=== PATIENT | male | born 1985 | race African-American/Black ===

== ENCOUNTER 2016-09-08 03:30 | Emergency (ER) | payer SELFPAY ==
[~2016-09-08 03:30] MED LIST: ANTI2TAB PO; Z.0.NO CURRENT MEDS; ZOFR4TAB3 PO
[2016-09-08 03:38] VITALS: BP 156/90; PULSE 100; RESP 12; TEMP 98.7; O2SAT 96
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
[2016-09-08] MEDS ORDERED: TETANUS/DIPHTHERIA TOXOID ADULT 0.5 ML VIAL IM ONE (04:30)
--- NOTE | 2016-09-08 04:53 | PD ---
Physical Exam Date Seen by Provider: Sep 08, 2016 Time Seen by Provider: 04:51 Narrative Skin: Patient has a linear laceration to the left anterior forehead. This measures 6 cm. No foreign body. No deep structure injury. Bleeding controlled. Data Data Last Documented VS Vital Signs Date Time Temp Pulse Resp B/P Pulse Ox O2 Delivery O2 Flow Rate FiO2 09/08/16 03:42 93 16 98 Room Air 09/08/16 03:38 98.7 156/[address] Brain W/O Iv Contrast(Rout) (09/08/16 04:23) Tetanus/Diphtheria Tox Adult (Tetanus/Di (09/08/16 04:30) MDM Medical Record Reviewed: Yes Supervised Visit with TIM: Yes Differential Diagnosis MDM: High Differential diagnoses: Fracture, sprain, strain, dislocation, contusion, neurovascular injury Narrative Course Patient's laceration is closed with sutures Procedures Procedure Narrative LACERATION LOCATION: Left anterior forehead LENGTH: 6 cm NUMBER OF STITCHES/DOC: Single running REPAIR: The area of the laceration was prepped with Betadine and sterilely draped. The laceration was infiltrated with 1% lidocaine. The wound was copiously irrigated and explored without evidence of foreign body, tendon injury or neurovascular injury. The wound was closed using 6-0 proline. This was a simple single layer repair. A sterile dressing was applied. Ice pack applied. The patient was advised to keep the dressing clean and dry. Patient tolerated the procedure well. Patient Instructions: General Instructions Additional Instruction: Rest. Ice pack tonight. Tylenol or Advil for pain. Daily wound care with soap, water, Neosporin. Sutures out in 5 days. Sunscreen and mederma for 6 months. Return to the ER for any problems. Med/Other Pt SpecificInfo: Wound Care Shekhar Lang Sep 08, 2016 04:53
--- NOTE | 2016-09-08 05:54 | RADRPT ---
EXAM DATE/TIME: 09/08/2016 05:10 [place] COMPARISON: No previous studies available for comparison. INDICATIONS : Trauma, fall. RADIATION DOSE: 56.35 CTDIvol (mGy) MEDICAL HISTORY : None SURGICAL HISTORY : None. ENCOUNTER: Initial ACUITY: 1 day PAIN SCALE: 6/10 LOCATION: cranial TECHNIQUE: Multiple contiguous axial images were obtained of the head. Using automated exposure control and adj ustment of the mA and/or kV according to patient size, radiation dose was kept as low as reasonably a chievable to obtain optimal diagnostic quality images. DICOM format image data is available electro nically for review and comparison. FINDINGS: CEREBRUM: The ventricles are normal for age. No evidence of midline shift, mass lesion, hemorrhage or acute in farction. No extra-axial fluid collections are seen. POSTERIOR FOSSA: The cerebellum and brainstem are intact. The 4th ventricle is midline. The cerebellopontine angle i s unremarkable. EXTRACRANIAL: The visualized portion of the orbits is intact. SKULL: The calvaria is intact. No evidence of skull fracture. CONCLUSION: Normal examination except for some subcutaneous soft tissue swelling primarily in the left supraorbit al region. Simba Wang MD on September 08, 2016 at 5:52 Board Certified Radiologist. This report was verified electronically.
[2016-09-08 06:11] VITALS: BP 142/82
--- NOTE | 2016-09-08 09:59 | EKG ---
Date Performed: 09/08/2016 Time Performed: 03:44:57 PTAGE: 30 years EKG: Sinus rhythm NONSPECIFIC T-WAVE ABNORMALITY BORDERLINE ECG NO PREVIOUS TRACING DOCTOR: Dewey Miranda Interpretating Date/Time 09/08/2016 09:58:29
== END 2016-09-08 06:19 | disposition home or self-care (01) ==
LOC: NEPE 03:30
DX: S01.81XA Laceration without foreign body of other part of head, initial encounter (principal); S06.0X0A Concussion without loss of consciousness, initial encounter; S09.90XA Unspecified injury of head, initial encounter; R94.31 Abnormal electrocardiogram [ECG] [EKG]; W01.198A Fall on same level from slipping, tripping and stumbling with subsequent striking against other object, initial encounter; Y92.480 Sidewalk as the place of occurrence of the external cause; Z72.0 Tobacco use; Z23 Encounter for immunization; V49.9XXA Car occupant (driver) (passenger) injured in unspecified traffic accident, initial encounter; Y92.410 Unspecified street and highway as the place of occurrence of the external cause
CPT/HCPCS: 12014; 70450; 90471; 90714; 93005

== ENCOUNTER 2016-09-24 21:08 | Emergency (ER) | payer SELFPAY ==
[~2016-09-24] VITALS: Ht 180.3 cm; Wt 113.5 kg
[2016-09-24 21:10] VITALS: BP 142/86; PULSE 72; RESP 16; TEMP 98.3; O2SAT 99
--- NOTE | 2016-09-24 22:30 | PD ---
HPI Chief Complaint: Wound/Suture/Staple Re-Check Time Seen by Provider: 22:27 Travel History International Travel<30 days: No Contact w/Intl Traveler<30days: No Traveled to known affect area: No History of Present Illness HPI Patient comes in requesting suture removal from his face placed 16 days ago. Patient denies any complaints or concerns with them. Reports he has been given dry and clean as possible. Patient states he waited longer than the 5 days as previously instructed because he wanted to make sure the wound was well-healed before he came back. [facility] Past Medical History Immunizations Current: Yes Social History Alcohol Use: Yes (Occ) Tobacco Use: Yes Substance Use: Yes (Marijuana -oCC) Allergies-Medications (Allergen,Severity, Reaction): Coded Allergies: No Known Allergies (Verified , 09/08/16) Reported Meds & Prescriptions Reported Meds & Active Scripts Active Review of Systems Except as stated in HPI: all other systems reviewed are Neg Physical Exam Narrative GENERAL: Well-developed, overly nourished, in no acute distress, and non-ill appearing. SKIN: Focused skin assessment warm and dry. Healing wound with sutures partially buried left forehead. It is afebrile, nontender, no drainage, or other signs of infection. Sutures dry clean intact. HEAD: Atraumatic. Normocephalic. EYES: Pupils equal and round. EOMI. No scleral icterus. No injection or drainage. ENT: No nasal bleeding or discharge. Mucous membranes pink and moist. NECK: Trachea midline. Supple. No nuclear rigidity. RESPIRATORY: No accessory muscle use. No respiratory distress. MUSCULOSKELETAL: No obvious deformities. No clubbing. No cyanosis. No edema. Full range of motion. NEUROLOGICAL: Awake and alert. No obvious cranial nerve deficits. Motor grossly within normal limits. Normal speech. PSYCHIATRIC: Appropriate mood and affect; insight and judgment normal. Data Data Last Documented VS Vital Signs Date Time Temp Pulse Resp B/P Pulse Ox O2 Delivery O2 Flow Rate FiO2 09/24/16 21:10 98.3 72 16 142/86 99 MDM Medical Decision Making Medical Screen Exam Complete: Yes Emergency Medical Condition: No Differential Diagnosis Suture removal, wound check, infected wound, other Narrative Course Patient in no obvious distress upon re-evaluation. Any questions/concerns in reference to patient diagnosis/condition discussed and clarified prior to patient's discharge. Reinforced follow up with plastics in the future if desired for scar revision. Instructed patient to return to ED immediately, if symptoms return/worsen. Pt showed understanding of above instructions. Further instructions and recommendations were detailed in discharge paperwork. Pt ambulated without difficulty out of ED at discharge. Procedures Procedure Narrative Verbal consent was obtained. One running suture was easily removed. There is no complications. Patient tolerated procedure well. Diagnosis Primary Impression: Encounter for removal of sutures Patient Instructions: General Instructions, Stitches Removal (ED) Additional Instructions: Follow-up with plastic surgeon in the future for scar revision if desired. Use sunscreen when outside the decreased visibility of scar. Return to the emergency department if symptoms get worse. Disposition: 01 DISCHARGE HOME Condition: Stable Dandy Diaz Sep 24, 2016 22:30
== END 2016-09-24 23:15 | disposition home or self-care (01) ==
LOC: NEPK 21:08
DX: S01.80XD Unspecified open wound of other part of head, subsequent encounter (principal); X58.XXXD Exposure to other specified factors, subsequent encounter; Z48.02 Encounter for removal of sutures
CPT/HCPCS: 99281